=== PATIENT | female | born 1960 | race Caucasian/White ===

== ENCOUNTER → 2019-01-23 | Outpatient (CLI) | payer OTHER ==
[2019-01-23 17:05] VITALS: BMI 27.3
[2019-01-23 17:59] LABS: Hemoglobin 14.2 g/dL (12.0-16.0); Mean Corpuscular Hemoglobin 30.4 pg (27.0-31.0); Mean Corpuscular Volume 92.1 fL (78.0-98.0); Mean Platelet Volume 8.1 fL (7.4-10.4); Platelet Count 259 thou/uL (130-400); RBC Distribution Width 12.9 % (11.5-14.5); Red Blood Cell (RBC) Count 4.69 mill/uL (4.20-5.40); White Blood Cell (WBC) Count 11.1 thou/uL (4.8-10.8)
--- NOTE | 2019-01-25 00:19 | HP ---
She is scheduled for hysterectomy, procedure on 01/29/2019. HISTORY OF PRESENT ILLNESS: Ms. Cho is a 58-year-old white female, G1, P1, prior vaginal delivery, who presented for annual examination in December 2018. On exam, she was noted to have a pelvic mass and fullness, which was thought to be a large uterine fibroid. She did note pelvic pressure symptoms and heaviness in her pelvis. She still reports regular menstrual cycles every month with no excessive heavy bleeding. Main sensation was to pelvic fullness and heaviness. Due to the pelvic exam findings, she underwent a transvaginal ultrasound which showed her to have approximately a 12 cm fibroid encompassing the majority of her uterus. There was no adnexal masses seen. Pap smear obtained in December 2018 was negative along with negative HPV testing. PAST MEDICAL HISTORY: Insignificant. PAST SURGICAL HISTORY: No prior surgeries. PRIMARY CARE PROVIDER: Kvng Nelson MD. ALLERGIES: SHE HAS NO KNOWN DRUG ALLERGIES. SOCIAL HISTORY: She is a nonsmoker. No excessive alcohol use reported. No significant family history. Particularly, no ovarian cancer history. CURRENT MEDICATIONS: She receives sulfacetamide-prednisolone 10%-0.23% eyedrops. PHYSICAL EXAMINATION: VITAL SIGNS: Her height 5 feet 7 inches, weight 180 pounds, BMI 28.2, blood pressure 124/78, pulse 90, respiratory rate 18, pulse oximetry is 97%. HEENT: Normocephalic, atraumatic. NECK: No thyromegaly or masses. CHEST: Clear to auscultation. HEART: Regular rate and rhythm. S1 and S2 heart sounds. No murmurs, rubs, or gallops. PELVIC: Vulva and vagina had no lesions. No cervical lesion seen on vaginal exam. Minimal small cystocele. There was no cervical lesions. Uterus was enlarged to regular contour, nontender, 14-week size with ultrasound confirmation of a 12 cm uterine myoma. Adnexa were nontender with no masses. ASSESSMENT: This is a 58-year-old white female, G1, P1 with 12 cm uterine myoma, pelvic pressure and discomfort symptoms reported. No adnexal masses seen. PLAN: To proceed with robotic total laparoscopic hysterectomy with bilateral salpingectomy. The patient would prefer ovarian preservation since she is still having regular cycles. She has no family history of ovarian cancer. We will need to place the uterine specimen in bag intraoperatively and perform ExCITE procedure for removal of specimen. Risks and benefits of the procedure were discussed in detail. She is set for surgery on 01/29/2019. Job ID: [id number]
== END ==
LOC: SDC 13:47 → EDSTATUS 01-29 16:00
PROVIDERS: ATTEND Obstetrics & Gynecology
DX: Z01.812 Encounter for preprocedural laboratory examination (principal); D25.9 Leiomyoma of uterus, unspecified
CPT/HCPCS: 85027; 86850; 86900; 86901

== ENCOUNTER 2019-02-25 06:08 | Inpatient (IN) | payer OTHER ==
--- NOTE | 2019-02-24 19:58 | HP ---
She is scheduled for surgery on 02/25/2019. HISTORY OF PRESENT ILLNESS: Ms. Cho is a 58-year-old white female, G1, P1, who has been having notable increasing pelvic pressure and bloating and low back pain over the past year or so. She has also been reporting having heavier menstrual cycle bleeding over the past 6 months, where she had saturated maxi pad in 30 minutes for 2 days of her cycle. She denies any intermenstrual bleeding. She has also been reported per history to be anemic by her PCP with screening labs and has been started on iron therapy 325 mg b.i.d. She was seen in my office back in December of this year, reporting these symptoms along with her annual exam. At that time, she was noted to have on pelvic exam a pelvic mass and ultrasound showed this to be consistent with a large uterine leiomyoma. PAST MEDICAL HISTORY: Negative. PAST SURGICAL HISTORY: She has had a prior oophorectomy for a torsion in the past. CURRENT MEDICATIONS: Ketorolac 10 mg tablet as needed for menstrual pain. She is on sulfacetamide and prednisolone eyedrops for allergic conjunctivitis symptoms. ALLERGIES: SHE HAS NO KNOWN DRUG ALLERGIES. PHYSICAL EXAMINATION: VITAL SIGNS: Her height is 5 feet and 7 inches, weight 180 with a BMI of 28.2. Blood pressure is 124/78, pulse is 90 and regular, respiratory rate is 18, and O2 saturations on room air is 97%. HEENT: Within normal limits. CHEST: Clear to auscultation. HEART: Regular rate and rhythm. S1 and S2 heart sounds. No murmurs, rubs, or gallops. ABDOMEN: Soft, nontender, nondistended with no palpable masses. PELVIC: Vulva and vagina had no lesions. Cervix had no lesions. Recent Pap smear obtained in December with negative HPV and normal cells. She had minimal cystocele and rectocele, they were asymptomatic. Her uterus was enlarged with regular contour, measuring on bimanual 14-week size. Adnexa were nontender with no masses. EXTREMITIES: Showed full range of motion. IMAGING STUDIES: An ultrasound of the pelvis was performed, there was a 12-cm singular uterine fibroid noted. No adnexal masses seen. ASSESSMENT: This is a 58-year-old white female, G1, P1, with a prior oophorectomy, now with symptomatic 16 week uterine fibroids with one large 12 cm myoma noted. PLAN: Plan is to proceed with robotic TLH with salpingectomy. We will need to remove the specimen within the ExCITE procedure. The patient is desiring preservation of the remaining ovary as possible. Risks and benefits of surgery have been discussed with the patient. She is scheduled for surgery on 02/25/2019. Job ID: [id number]
[2019-02-25] MEDS ORDERED: Gabapentin 300 MG CAP ONE (06:18)
[2019-02-25] MEDS ORDERED: CeleCOXIB 100 MG CAP ONE (06:18)
[2019-02-25] MEDS ORDERED: Famotidine/PF 20 mg/2ml Vial ONE (06:18)
[2019-02-25] MEDS ORDERED: Fentanyl 100 MCG/2 ML VIAL ONE ×3 (06:48→10:55)
[2019-02-25] MEDS ORDERED: Bupivacaine HCl 0.5%/Epinephrine 1:200,000/PF 30 ml Vial ONE (06:51)
[2019-02-25 07:07] LABS: #Eosinphils 0.1 thou/uL (0.0-0.7); #Monocytes 0.5 thou/uL (0.11-0.59); #Neutrophils 3.8 thou/uL (1.40-6.50); %Basophils 0.1 % (0.0-1.0); %Eosinophils 1.3 % (0.0-10.0); %Lymphocytes 19.6 % (21.0-51.0); %Monocytes 8.5 % (0.0-10.0); %Neutrophils 70.4 % (42.0-75.0); Hemoglobin 14.5 g/dL (12.0-16.0); Mean Corpuscular HGB CONC 33.6 g/dL (32.0-36.0); Mean Corpuscular Hemoglobin 30.4 pg (27.0-31.0); Mean Corpuscular Volume 90.4 fL (78.0-98.0); Platelet Count 235 thou/uL (130-400); RBC Distribution Width 12.2 % (11.5-14.5); Red Blood Cell (RBC) Count 4.77 mill/uL (4.20-5.40); White Blood Cell (WBC) Count 5.3 thou/uL (4.8-10.8)
[2019-02-25] MEDS ORDERED: Morphine 4 MG/ML VIAL SLOW IVP PRN ×2 (10:10→10:40)
[2019-02-25] MEDS ORDERED: Ondansetron PF 4 MG/2 ML Vial IVP PRN (10:10)
[2019-02-25] MEDS ORDERED: Zolpidem Tartrate 5 MG TAB PO PRN (10:10)
[2019-02-25] MEDS ORDERED: diphenhydrAMINE 25 MG CAP PO PRN (10:10)
[2019-02-25] MEDS ORDERED: Simethicone Chewable 80 MG TAB PO PRN (10:10)
[2019-02-25] MEDS ORDERED: Bisacodyl 10 MG SUPP PR PRN (10:10)
[2019-02-25] MEDS ORDERED: Promethazine HCl 25 MG/ML VIAL IM PRN (10:10)
[2019-02-25] MEDS ORDERED: Estradiol 0.05mg/24 Hour Patch (Weekly) TD SCH (10:15)
[2019-02-25] MEDS ORDERED: Morphine 4 MG/ML VIAL ONE (10:29)
[2019-02-25] MEDS ORDERED: Non-Formulary Medication 1 EACH PO PRN (10:40)
[2019-02-25] MEDS ORDERED: Promethazine HCl 25 MG/ML VIAL IM/IV PRN (10:40)
[2019-02-25] MEDS ORDERED: Ondansetron HCl/PF 4 MG/2 ML Vial IVP PRN (10:40)
[2019-02-25] MEDS ORDERED: Morphine 2 MG/ML SYRINGE ONE (10:57)
[2019-02-25] MEDS: Ketorolac Tromethamine 30 MG/ML VIAL IVP SCH ×3 (12:06→23:55)
[2019-02-25] MEDS ORDERED: Acetaminophen 1,000 MG in Premix Bag 1 BAG IVPB SCH (14:00)
[2019-02-25] MEDS ORDERED: Lidocaine 1% PF 5 ML VIAL ONE (15:18)
[2019-02-25] MEDS ORDERED: PROPOFOL 200 MG/20 ML VIAL ONE (15:18)
[2019-02-25] MEDS ORDERED: Glycopyrrolate 0.2 MG/ML 5 ML SYRINGE ONE (15:18)
[2019-02-25] MEDS ORDERED: Ondansetron PF 4 MG/2 ML Vial ONE (15:18)
[2019-02-25] MEDS ORDERED: Dexamethasone 20 MG/5 ML VIAL ONE (15:18)
[2019-02-25] MEDS ORDERED: Metoclopramide HCl 10 MG/2 ML VIAL ONE (15:18)
[2019-02-25] MEDS ORDERED: Rocuronium Bromide 10 MG/ML (10ML VIAL) ONE (15:18)
[2019-02-25] MEDS: Sodium Chloride 0.9% 1,000 ML IV SCH ×2 (15:51→23:52)
[2019-02-25] MEDS: Acetaminophen 1,000 MG in Premix Bag 1 BAG IVPB SCH (22:12)
[2019-02-26 00:34] VITALS: BMI 27.3
--- NOTE | 2019-02-26 00:55 | OP ---
DATE OF PROCEDURE: 02/25/2019 PREOPERATIVE DIAGNOSES: 1. A 58-year-old white female with 16-week symptomatic uterine fibroids with menorrhagia and pelvic pain. 2. History of previous right salpingo-oophorectomy for ovarian torsion. POSTOPERATIVE DIAGNOSES: 1. A 58-year-old white female with 16-week symptomatic uterine fibroids with menorrhagia and pelvic pain. 2. History of previous right salpingo-oophorectomy for ovarian torsion. PROCEDURES PERFORMED: Robotic total laparoscopic hysterectomy and left salpingo-oophorectomy with EXIT procedure for removal of a uterine specimen. WHOLESALE AGRONOMIST SURGEONS: Tammi Camacho DO and DICK Cornelius. ANESTHESIA: General endotracheal. ESTIMATED BLOOD LOSS: 25 mL. COMPLICATIONS: None. COUNTS: Correct x2. ANTIBIOTICS: 2 g Ancef, on-call to OR along with ERAS protocol. PATHOLOGY: Uterus, cervix, and left fallopian tube and ovary. FINDINGS: 1. Enlarged uterus, mostly a 12 cm intramural uterine fibroid was noted. 2. Perimenopausal appearing left ovary and fallopian tube. 3. Surgical absence of right tube and ovary. 4. Clear urine present in Casas catheter postprocedure and bilateral ureteral peristalsis visualized postprocedure. DISPOSITION: Recovery room, stable. DESCRIPTION OF PROCEDURE: The patient previously received informed consent in regard to surgery. She was taken back to the operating room, where she received a general endotracheal anesthetic agent without complications. She was placed in dorsal lithotomy position with use of Neeraj stirrups and prepped and draped in usual sterile fashion. A Casas catheter was placed at this time and a side-arm speculum was placed in vagina. Anterior lip of the cervix was grasped with single-tooth tenaculum. The uterus sounded to 11 cm. A size 10 cm DIANE uterine manipulator with a 4.0 cm cervical cup was placed. The tenaculum and speculum were removed. Attention was then turned to the abdomen. Perspective trocar sites were infiltrated with 0.5% Marcaine with epinephrine. A 12 mm supraumbilical incision was made and Veress needle was entered into the peritoneal cavity with patient pressure noted to be less than 5 mm. Abdomen was insufflated with the patient's pressure of 15, approximately 4.5 L of carbon dioxide was instilled. Veress needle was removed and a size 12 mm trocar was placed through the incision. The robotic laparoscope was introduced through the trocar sleeve confirming proper entry. At this time, the patient was placed in Trendelenburg position and additional bilateral lower quadrant 8 mm robotic trocars were placed under laparoscopic guidance along with the right upper quadrant 11 mm public services assistant port. Once we felt that the surgery could be carried out laparoscopically, the GelPOINT system was then placed in the supraumbilical incision site. The fascial defect there was extended approximately 2.5 cm. The small Aníbal O retractor was then placed through the fascial defect and wound down with the GelPOINT covering over this. The laparoscopic trocar was then placed through the GelPOINT port prior to this, and then this laparoscope was introduced through the trocar sleeve. After the folded prepared medium-size Aces tissue bag had been placed in the patient's right upper quadrant. The GelPOINT was closed and the robot was then docked in usual fashion. I proceeded to carry out the surgery from the robotic operative console while my assistants remained at the bedside. The uterus was elevated from the pelvis. The left fallopian tube was grasped by my public services assistant. I proceeded to coagulate the left infundibulopelvic ligament hugging close to the ovary and this was transected. Serial coagulation of the broad ligament hugging close to uterus was carried down to the left round ligament was reached. It was coagulated and transected and the anterior leaf of the broad ligament was entered dissecting the vesicouterine peritoneal fold in a layering technique. Both sharp and blunt dissection was utilized to dissect the bladder atraumatically past the cervical vaginal angle. The posterior leaf of the broad ligament near the uterine vessels was also incised, skeletonizing the uterine vessels at the internal cervical os region. The uterine vessels were then coagulated in this region with bipolar fenestrated cautery. On the right side of the uterus, the right fallopian tube and ovary had been previously surgically resected. The right round ligament was coagulated and transected, opening the anterior leaf and the posterior leaf of the broad ligament that remained with the layering of the peritoneal edges, dissecting this laterally away from the uterus and releasing it freely from the pelvic sidewall. The uterine vessels again were skeletonized after the anterior leaf of the broad ligament had been reached. The vesicouterine uterine peritoneal fold again was incised in layering technique both sharply and bluntly dissecting the bladder atraumatically past the cervical vaginal angles. Again, the uterine vessels were skeletonized and they were coagulated in the internal cervical os region. Once we had control of the uterine vessels, the anterior colpotomy was made starting from 12 to 3 and 12 to 9 o'clock position. The uterine specimen was then brought anteriorly with the aid of my assistants and the posterior colpotomy was completed both from 6 to 3 and 6 to 9 o'clock position. This released the specimen which was then brought into the abdomen away from the pelvis after it was released from the DIANE uterine manipulator. Then pneumoperitoneum continued vaginally with the bulb securing the pneumoperitoneum. The vaginal cuff was then closed after a Nguyễn needle cmv driver was switched for the monopolar scissors and my public services assistant brought in a Stratafix suture. The vaginal cuff was closed in full-thickness closure starting from the right vaginal angle towards the left vaginal angle and back towards the midline. The needle and remaining suture were cut and this was delivered up through the right upper quadrant public services assistant port. All the pedicle sites were confirmed to be hemostatic. This allowed then time for us to bring the prepared Aces bag into the pelvis. The previous tight sutures creating the bag in accordion fashion were then cut by my public services assistant, and the bag was opened in the upright position. Then, we moved this specimen with both the bipolar fenestrated cautery and my public services assistant with atraumatic graspers moving the uterine specimen into the Endobag. Once the specimen was secured inside the tissue bag, the drawstring securing the bag was then brought up through the GelPOINT by my public services assistant with an atraumatic grasper. This allowed for us to do the retrieval suture in the bag, so GelPOINT was open after the laparoscope and trocar were removed after the robot had been undocked. Endobag was then brought through the GelPOINT and the specimen was confirmed to be retained inside the tissue bag. I then removed the small Aces retractor and put this inside the endobag retrieval to protect the sidewalls as we did the C incision for tissue morcellation. This specimen was grasped with Sylvai thyroid clamps and continued scalpelling with the C incisions removing the specimen and strips were carried out until the specimen was completely removed. The Aces bag was then removed and was noted to be intact. The Aníbal O retractor was removed. The fascial defect in the supraumbilical region was then closed with 0 Vicryl suture in running continuous fashion with good approximation of the fascia confirmed. The skin sites were closed with 4-0 Monocryl subcuticular stitch fashion and Dermabond. The vaginal vault was checked and noted to be hemostatic with the sponge stick. Clear urine was draining from the Casas catheter and the ureters had been observed to be peristalsing during the pedicle check prior to the removal of the uterine specimen. The patient was awakened from anesthesia and transferred to recovery room in stable condition. Job ID: [id number]
[2019-02-26] MEDS: Acetaminophen 1,000 MG in Premix Bag 1 BAG IVPB SCH (04:10)
[2019-02-26] MEDS: Ketorolac Tromethamine 30 MG/ML VIAL IVP SCH (06:12)
[2019-02-26 07:32] LABS: Mean Corpuscular HGB CONC 33.1 g/dL (32.0-36.0); Mean Corpuscular Hemoglobin 30.5 pg (27.0-31.0); Mean Corpuscular Volume 92.3 fL (78.0-98.0); Platelet Count 211 thou/uL (130-400); RBC Distribution Width 12.2 % (11.5-14.5); Red Blood Cell (RBC) Count 3.94 mill/uL (4.20-5.40); White Blood Cell (WBC) Count 13.1 thou/uL (4.8-10.8)
[2019-02-26 08:07] VITALS: BP 137/74; TEMP 98.8
[2019-02-26] MEDS ORDERED: Acetaminophen/Codeine 30-300mg Tablet PO PRN ×2 (18:00)
--- NOTE | 2019-02-27 00:16 | DIS ---
DATE OF ADMISSION: 02/25/2019 DATE OF DISCHARGE: 02/26/2019 DIAGNOSES: 1. Symptomatic 16-week uterine fibroids. 2. Menorrhagia and pelvic pain and discomfort. PROCEDURES PERFORMED: Robotic total laparoscopic hysterectomy and left salpingo-oophorectomy with removal of tissue via the ExCITE procedure. SUMMARY OF HOSPITAL COURSE: Ms. Cho is a 58-year-old white female who had increasing heavy menstrual bleeding and pelvic discomfort and pain in the past years. She was noted on exam to have enlarged uterus and ultrasound confirmation showed her to have a very large 12 cm intramural uterine fibroid. She had had a previous right salpingo-oophorectomy in the past for benign ovarian torsion cyst. She elected to proceed with definitive surgical therapy and underwent a robotic total laparoscopic hysterectomy with left salpingo-oophorectomy with ExCITE procedure on 02/25/2019. Postoperatively, the patient has done well. Her vital signs have remained stable. She is ambulating and voiding without difficulty on postop day #1 and was tolerating regular diet. Postoperative hematocrit was expected fall at 36.7%. She was discharged on the day of postop day #1. DISCHARGE MEDICATIONS: 1. Tylenol No.3 one to two q.6 hours p.r.n. pain. 2. Vvos-[id number]-wfiosrp ibuprofen 800 mg q.8 hours as needed for pain. 3. She was also given Climara patch 0.05 mg weekly for hormone replacement therapy. Pathology is pending at time of this dictation. She has a followup in 2 and 6 weeks postop. Job ID: [id number]
[2019-03-02] MEDS ORDERED: Ibuprofen 800 MG TAB PO SCH (22:00)
== END 2019-02-26 09:25 | disposition home or self-care (01) | DRG 743 ==
LOC: SDC 06:08 → EDSTATUS 09:40 → 3SE 11:54
PROVIDERS: ADMIT Obstetrics & Gynecology; ATTEND Obstetrics & Gynecology
PROC: 0UT94ZZ Resection of Uterus, Percutaneous Endoscopic Approach (ICD-10-PCS; principal; 2019-02-25)
PROC: 0UB14ZZ Excision of Left Ovary, Percutaneous Endoscopic Approach (ICD-10-PCS; 2019-02-25)
PROC: 0UB64ZZ Excision of Left Fallopian Tube, Percutaneous Endoscopic Approach (ICD-10-PCS; 2019-02-25)
PROC: 8E0W4CZ Robotic Assisted Procedure of Trunk Region, Percutaneous Endoscopic Approach (ICD-10-PCS; 2019-02-25)
DX: D25.1 Intramural leiomyoma of uterus (principal); N92.0 Excessive and frequent menstruation with regular cycle; R10.2 Pelvic and perineal pain; Z90.721 Acquired absence of ovaries, unilateral
CPT/HCPCS: 36415; 85025; 85027; 86850; 86900; 86901; 88307; J0131; J0670; J1885; J2270; J3010; S0028